=== PATIENT | male | born 1935 | race Caucasian/White ===

== ENCOUNTER 2018-03-19 12:32 | Observation (INO) ==
[2018-03-19] MEDS ORDERED: Sodium Chlor 0.9% Inj 500 ML IV.SIG ONE (13:27)
[2018-03-19 13:41] LABS: Baso % (Auto) 0.5 % (0.0-2.0); Eos % (Auto) 0.2 % (0.0-4.0); Hematocrit 39.9 % (39.0-51.0); Hemoglobin 13.3 gm/dL (13.0-17.0); Lymph # (Auto) 0.9 th/mm3 (1.0-4.8); Lymph % (Auto) 14.1 % (9.0-44.0); Mean Corpuscular HGB Conc 33.4 % (32.0-36.0); Mean Corpuscular Hemoglobin 30.2 pg (27.0-34.0); Mean Corpuscular Volume 90.4 fL (80.0-100.0); Mean Platelet Volume 8.2 fL (7.0-11.0); Mono # (Auto) 0.4 th/mm3 (0.0-0.9); Mono % (Auto) 6.5 % (0.0-8.0); Neut # (Auto) 5.3 th/mm3 (1.8-7.7); Neut % (Auto) 78.7 % (16.0-70.0); Platelet Count 168 th/mm3 (150-450); Red Blood Count 4.41 mil/mm3 (4.50-5.90); Red Cell Distribution Width 13.3 % (11.6-17.2); White Blood Count 6.6 th/mm3 (4.0-11.0)
[2018-03-19 14:00] LABS: Potassium 3.9 meq/L (3.5-5.1)
[2018-03-19 14:02] LABS: Calcium 8.1 mg/dL (8.5-10.1)
[2018-03-19 14:03] LABS: Carbon Dioxide 24.3 meq/L (21.0-32.0)
[2018-03-19 14:04] LABS: INR 1.1 Ratio; Prothrombin Time 10.7 sec (9.8-11.6)
[2018-03-19 14:11] LABS: Troponin I 0.03 ng/mL (0.02-0.05)
[2018-03-19 14:33] LABS: Bilirubin,Urine Negative (Negative); Clarity,Urine Clear (Clear); Color,Urine Yellow (Yellw/Straw); Glucose,Urine (UA) Negative (Negative); Leukocyte Esterase,Urine Negative (Negative); Nitrite,Urine Negative (Negative); Specific Gravity,Urine Less/Equal 1.005 (1.002-1.035); Urobilinogen,Urine 0.2 mg/dL (Less than 2)
[2018-03-19 14:40] LABS: Collection Time,Urine 1415 hours; RBC,Urine 0-3 /hpf (0-3); Squamous Epithelial Cell,Urine 0-5 /hpf (0-5)
--- NOTE | 2018-03-19 15:19 | ED ---
HPI General Chief complaint: Dizziness Stated complaint: Lightheaded/SOB x 0300 hrs Time Seen by Provider: 03/19/18 13:01 Source: patient, family and RN notes reviewed Mode of arrival: ambulatory History of Present Illness HPI narrative: 82yM presenting with near-syncope and chest discomfort. The patient states that for the past several years he's been having episodes of feeling "like I'm going to pass out" which occur both on exertion and at rest, last for several minutes and resolve spontaneously. This morning, he was at home when he had the same sensation and says that he also had mild substernal chest "discomfort" (non-radiating, not made worse by anything, resolving on its own). Denies diaphoresis or dyspnea, denies nausea. He says that he had similar symptoms earlier this year when he had a GI bleed and was hospitalized in [place]; he required a blood transfusion at that time. Family history non-contributory. Patient had an echo performed on 03/06/18 for lower extremity edema which showed EF 60%, mild TR/ LVH, PA pressure 36 mmHg. Related Data Home Medications Medication Instructions Recorded Confirmed atorvastatin 40 mg PO DAILY 03/19/18 03/19/18 memantine 5 mg PO DAILY 03/19/18 03/19/18 metoprolol succinate 25 mg PO DAILY 03/19/18 03/19/18 multivit with min #[id number] 2 tab PO DAILY 03/19/18 03/19/18 omeprazole 20 mg PO DAILY 03/19/18 03/19/18 tamsulosin 2 tab PO DAILY 03/19/18 03/19/18 Allergies Allergy/AdvReac Type Severity Reaction Status Date / Time No Known Allergies Allergy Unverified 03/19/18 12:40 Review of Systems Except as stated in HPI: all other systems reviewed are negative Constitutional Denies fever(s) Eyes Denies blurry vision ENT Denies nasal congestion Cardiovascular Denies dyspnea Respiratory Denies cough Gastrointestinal Denies nausea Genitourinary Denies dysuria Musculoskeletal Denies back pain Neurologic Denies confusion Psychiatric Denies confusion PMFSH History History Provided By: Patient Medical History Medical History Afib (Acute) GERD (gastroesophageal reflux disease) (Acute) High cholesterol (Acute) Hypertension (Acute) Surgical History Surgical History No history of previous surgery (Acute) Social History Social History Substance History: No History of Abuse Second Hand Smoke Exposure: No Smoking Status: Former smoker How Often Do You Have a Drink Containing Alcohol: 2 to 3 times a week Recent Travel in [facility] within the Last 8 Weeks: No Recent Out of Country Travel within the Last 8 Weeks: No Immunization History Tetanus Immunization: Unsure Hx Influenza Vaccine This Season: Yes Exam Const General: healthy appearing and no acute distress HENMT Head: normocephalic and atraumatic Face and sinus: normal facial exam Eyes General: appearance normal, both eyes and all related structures Pupils: PERRL Chest Chest: normal inspection of the chest Resp Effort & Inspection: normal respiratory effort Auscultation: no rhonchi and no wheezes Cardio Rate: regular rate Rhythm: regular rhythm GI Inspection: non-distended Palpation: soft and nontender Skin General: no rashes or lesions noted Neuro General: alert, awake, oriented x3 and no focal motor deficits Extrem Other: 1-2+ pitting edema to lower extremities bilaterally, no calf tenderness Psych Affect: normal affect Course Initial Documented Vital Signs Temperature 97.2 F L 03/19/18 12:35 Pulse Rate 84 03/19/18 12:35 Respiratory Rate 16 03/19/18 12:35 Blood Pressure 88/65 L 03/19/18 12:35 Pulse Oximetry 97 03/19/18 12:35 Last Documented Vital Signs Temperature 97.2 F L 03/19/18 12:35 Pulse Rate 97 H 03/19/18 15:31 Respiratory Rate 18 03/19/18 15:31 Blood Pressure 128/80 03/19/18 15:31 Pulse Oximetry 98 03/19/18 15:31 Medical Decision Making [facility] Narrative Medical decision making narrative: Assessment: 82yM presenting with near-syncope and chest discomfort Plan: EKG and monitor Labs CXR Reassess Addendum: Patient's initial troponin 0.03, EKG shows rate-controlled A fib, labs otherwise unremarkable. He will need cardiac monitoring and further workup for near-syncope/ chest pain. I discussed these results with the patient as well as plan to keep him in the hospital; he understands and agrees. Case discussed with Dr. Osborne of [facility], who requests [facility] as well. Differential Diagnosis Differential Diagnosis: Differential diagnosis includes, but is not limited to: ACS, arrhythmia, anemia, electrolyte abnormality, ICH, dehydration Medical Records Medical records reviewed: Yes I reviewed the patient's medical records. Lab Data Lab results reviewed: Yes I reviewed the patient's lab results. Result diagrams: 03/19/18 13:30 03/19/18 13:30 Lab Results 03/19/18 03/19/18 03/19/18 Range/Units 13:30 13:30 13:30 CBC w Diff Auto diff final WBC 6.6 (4.0-11.0) th/mm3 RBC 4.41 L (4.50-5.90) mil/mm3 Hgb 13.3 (13.0-17.0) gm/dL Hct 39.9 (39.0-51.0) % MCV 90.4 (80.0-100.0) fL MCH 30.2 (27.0-34.0) pg MCHC 33.4 (32.0-36.0) % RDW 13.3 (11.6-17.2) % Plt Count 168 (150-450) th/mm3 MPV 8.2 (7.0-11.0) fL Neut % (Auto) 78.7 H (16.0-70.0) % Lymph % (Auto) 14.1 (9.0-44.0) % [place] % (Auto) 6.5 (0.0-8.0) % Eos % (Auto) 0.2 (0.0-4.0) % Baso % (Auto) 0.5 (0.0-2.0) % Neut # (Auto) 5.3 (1.8-7.7) th/mm3 Lymph # (Auto) 0.9 L (1.0-4.8) th/mm3 [place] # (Auto) 0.4 (0.0-0.9) th/mm3 Eos # (Auto) 0.0 (0.0-0.4) th/mm3 Baso # (Auto) 0.0 (0.0-0.2) th/mm3 WBC Differential . Differential Comment . PT 10.7 (9.8-11.6) sec INR 1.1 Ratio Sodium 139 (136-145) meq/L Potassium 3.9 (3.5-5.1) meq/L Chloride 108 H (98-107) meq/L Carbon Dioxide 24.3 (21.0-32.0) meq/L Anion Gap 7 (5-15) meq/L BUN 15 (7-18) mg/dL Creatinine 1.30 (0.60-1.30) mg/dL Estimated GFR 53 L (>89) mL/min Random Glucose 113 H (74-106) mg/dL Calcium 8.1 L (8.5-10.1) mg/dL Troponin I 0.03 (0.02-0.05) ng/mL Ur Collection Type Urine Color (Yellw/Straw) Urine Clarity (Clear) Urine pH (5.0-8.5) Ur Specific [place] (1.002-1.035) Urine Protein (Neg-Trace) mg/dL Urine Glucose (UA) (Negative) mg/dL Urine Ketones (Negative) mg/dL Urine Occult Blood (Negative) Urine Nitrate (Negative) Urine Bilirubin (Negative) Urine Urobilinogen (Less than 2) mg/dL Ur Leukocyte Esterase (Negative) Urine RBC (0-3) /hpf Ur Squamous Epith Cells (0-5) /hpf Micro UA Comment Urine Culture Comments Urine Collection Time hours 03/19/18 Range/Units 14:15 CBC w Diff WBC (4.0-11.0) th/mm3 RBC (4.50-5.90) mil/mm3 Hgb (13.0-17.0) gm/dL Hct (39.0-51.0) % MCV (80.0-100.0) fL MCH (27.0-34.0) pg MCHC (32.0-36.0) % RDW (11.6-17.2) % Plt Count (150-450) th/mm3 MPV (7.0-11.0) fL Neut % (Auto) (16.0-70.0) % Lymph % (Auto) (9.0-44.0) % [place] % (Auto) (0.0-8.0) % Eos % (Auto) (0.0-4.0) % Baso % (Auto) (0.0-2.0) % Neut # (Auto) (1.8-7.7) th/mm3 Lymph # (Auto) (1.0-4.8) th/mm3 [place] # (Auto) (0.0-0.9) th/mm3 Eos # (Auto) (0.0-0.4) th/mm3 Baso # (Auto) (0.0-0.2) th/mm3 WBC Differential Differential Comment PT (9.8-11.6) sec INR Ratio Sodium (136-145) meq/L Potassium (3.5-5.1) meq/L Chloride (98-107) meq/L Carbon Dioxide (21.0-32.0) meq/L Anion Gap (5-15) meq/L BUN (7-18) mg/dL Creatinine (0.60-1.30) mg/dL Estimated GFR (>89) mL/min Random Glucose (74-106) mg/dL Calcium (8.5-10.1) mg/dL Troponin I (0.02-0.05) ng/mL Ur Collection Type Clean catch Urine Color Yellow (Yellw/Straw) Urine Clarity Clear (Clear) Urine pH 7.0 (5.0-8.5) Ur Specific [place] Less/equal 1.005 (1.002-1.035) Urine Protein Negative (Neg-Trace) mg/dL Urine Glucose (UA) Negative (Negative) mg/dL Urine Ketones Negative (Negative) mg/dL Urine Occult Blood Negative (Negative) Urine Nitrate Negative (Negative) Urine Bilirubin Negative (Negative) Urine Urobilinogen 0.2 (Less than 2) mg/dL Ur Leukocyte Esterase Negative (Negative) Urine RBC 0-3 (0-3) /hpf Ur Squamous Epith Cells 0-5 (0-5) /hpf Micro UA Comment Culture not ind Urine Culture Comments Culture not ind Urine Collection Time 1415 hours ECG Data Interpretation: Rate: 84 BPM Rhythm: Atrial fibrillation Freedom: Normal Intervals: Normal intervals, no blocks, QTc 382 ms Q waves: III T waves: Upright, no inversions ST segments: No elevations or depressions Impression: Rate-controlled atrial fibrillation, no previous EKG available for comparison. Discharge Plan Physicians Team ED Provider: Magdalene Seth Primary Care Provider: NON STAFF,PROVIDER Rxs /Orders / Referrals /Forms Prescriptions: No Action tamsulosin 0.4 mg Capsule,Extended Release 24hr 2 tab PO DAILY RF: 0 omeprazole 20 mg Capsule,Delayed Release(Dr/Ec) 20 mg PO DAILY RF: 0 metoprolol succinate 25 mg Tablet Extended Release 24 Hr 25 mg PO DAILY RF: 0 memantine 5 mg Tablet 5 mg PO DAILY RF: 0 atorvastatin 40 mg PO DAILY RF: 0 multivit with min #[id number] 2 tab PO DAILY RF: 0 Discharge Interventions Interventions: Vital Signs Last Done: 03/19/18 15:31 Status ED Status: With Doctor
[2018-03-19] MEDS ORDERED: Metoprolol Inj 5 MG/5 ML Vial IV.PUSH ONE (15:21)
--- NOTE | 2018-03-19 15:50 | XR ---
EXAM DATE: 03/19/2018 3:43 PM EDT AGE/SEX: 82 years / Male INDICATIONS: Lightheaded with substernal chest discomfort. CLINICAL DATA: This is the patient's initial encounter. Patient reports that signs and symptoms have been present for 1 day and indicates a pain score of 2/10. MEDICAL/SURGICAL HISTORY: Hypertension. None. COMPARISON: No prior exams available for comparison. FINDINGS: A single AP view of the chest demonstrates the lungs to be symmetrically aerated without evidence of mass, infiltrate or effusion. The cardiomediastinal contours are unremarkable. Osseous structures a re intact. CONCLUSION: No acute cardiopulmonary disease. Electronically signed by: Rafal Lezama MD 03/19/2018 3:49 PM EDT
--- NOTE | 2018-03-19 16:08 | CT ---
EXAM DATE: 03/19/2018 4:02 PM EDT AGE/SEX: 82 years / Male INDICATIONS: Dizziness. CLINICAL DATA: This is the patient's initial encounter. Patient reports that signs and symptoms have been present for 1 day and indicates a pain score of 0/10. MEDICAL/SURGICAL HISTORY: Gastroesophageal reflux disease. Hypertension. Hypercholesterolemia. A trial fibrillation. None. RADIATION DOSE: 57.56 CTDI (mGy) COMPARISON: . TECHNIQUE: CT of the head without contrast. Using automated exposure control and adjustment of the mA and/or kV according to patient size, radiation dose was kept as low as reasonably achievable to ob tain optimal diagnostic quality images. DICOM format image data is available electronically for revi ew and comparison. FINDINGS: Cerebrum: Mild stable cerebral atrophy is noted. No evidence of midline shift, mass lesion, hemorrha ge or acute infarction. No extraaxial fluid collections are seen. Posterior Fossa: The cerebellum and brainstem are intact. The 4th ventricle is midline. The cerebe llopontine angle is unremarkable. Extracranial: The visualized portion of the orbits is intact. There is chronic sinusitis involving t he left maxillary sinus with complete opacification and wall thickening are noted. Skull: The calvaria is intact. No evidence of skull fracture. CONCLUSION: 1. No acute infarct, acute hemorrhage, midline shift or extra-axial fluid collections. 2. Mild stable cerebral atrophy. 3. Chronic left maxillary sinusitis. . Electronically signed by: Fermin Swenson MD 03/19/2018 4:07 PM EDT
[2018-03-19] MEDS ORDERED: Bisacodyl 10 MG Supp RECTAL PRN (17:54)
[2018-03-19] MEDS ORDERED: Temazepam 15 MG Capsule PO PRN ×2 (17:54→17:57)
--- NOTE | 2018-03-19 17:54 | P.HP ---
History of Present Illness Primary Care Physician: PROVIDER NON STAFF History of Present Illness: This is an 82-year-old male with a history of atrial fibrillation and hypertension who presents following an episode of dizziness and weakness that occurred at 6 AM this morning. At 6 AM this morning he awoke to go feed his cats and had an acute onset of dizziness and felt that his legs were generally weak. He had to crawl back to his bed but was unable to fall back onto the bed. When his awoke she helped him into bed and he slept for 2 more hours. When he awoke after that he still felt dizzy and weak and decided to come into the ER. He denies any chest pain, denies any nausea or vomiting, denies any focal weakness. ER workup revealed atrial fibrillation with RVR. He knew that he had atrial fibrillation but has never seen a printed circuit boards inspector for this. His primary care doctor was in the middle of some laboratory work to test the atrial fibrillation, presumably thyroid panel. Review of Systems Constitutional: Reports fatigue, Reports weakness, Denies daytime sleepiness, Denies excessive sweating, Denies fever(s), Denies headache(s), Denies weight gain, Denies weight loss Eyes: Denies blind spots, Denies blurry vision, Denies bulging eyes, Denies change in vision, Denies double vision, Denies discharge, Denies dry eyes, Denies floaters, Denies irritation, Denies itchy eyes, Denies loss of vision, Denies pain, Denies requires corrective lenses, Denies sensitivity to light, Denies other Ears, Nose, Mouth, and Throat: Denies abnormal hearing, Denies bleeding gums, Denies bad breath, Denies change in voice, Denies dental pain, Denies difficulty swallowing, Denies dizziness, Denies dry mouth, Denies ear discharge , Denies ear pain, Denies facial pain, Denies headache(s), Denies hearing loss, Denies hoarseness, Denies lip swelling, Denies nosebleed, Denies mouth lesions, Denies mouth pain, Denies nasal congestion, Denies nasal discharge, Denies nasal obstruction, Denies nasal trauma, Denies neck lump, Denies neck pain, Denies nose pain, Denies pain with swallowing, Denies poor balance, Denies post nasal drip, Denies ringing in the ears, Denies sinus pain, Denies sinus pressure , Denies sore throat, Denies throat swelling, Denies tongue swelling, Denies other Cardiovascular: Reports fast heart rate, Reports foot swelling, Reports irregular heart rhythm, Reports lightheadedness, Denies chest pain, Denies chest pain at rest, Denies chest pain with activity, Denies fainting, Denies leg pain with activity, Denies shortness of breath, Denies shortness of breath with activity, Denies shortness of breath when lying down, Denies slow heart rate Respiratory: Denies change in phlegm color, Denies chest congestion, Denies cough, Denies coughing up blood, Denies excessive phlegm production, Denies pain on inspiration, Denies pain with cough, Denies shortness of breath, Denies shortness of breath with activity, Denies snoring, Denies stridor, Denies wheezing, Denies other Gastrointestinal: Denies abdominal pain, Denies belching, Denies black, tarry stools, Denies bloating, Denies bright, red blood in stools, Denies change in bowel habits, Denies constant urge to pass stool, Denies change in stools, Denies coffee ground vomit, Denies constipation, Denies cramping, Denies difficulty swallowing, Denies excessive passing of gas, Denies feeling full early, Denies heartburn, Denies incontinent of stools, Denies loose stools, Denies nausea, Denies pain with swallowing, Denies vomiting, Denies vomiting blood, Denies other Musculoskeletal: Denies abnormal walking, Denies back pain, Denies body aches, Denies decreased muscle mass, Denies deformity, Denies joint pain, Denies joint swelling, Denies limited joint movement, Denies loss of height, Denies muscle cramps, Denies muscle weakness, Denies neck pain, Denies numbness, Denies radiating pain into limb, Denies stiffness, Denies tingling, Denies other Neurologic: Denies abnormal hearing, Denies abnormal movements, Denies abnormal speech, Denies abnormal walking, Denies behavioral changes, Denies burning sensations, Denies confusion, Denies dizziness, Denies fainting, Denies frequent falls, Denies headache(s), Denies lack of coordination, Denies localized weakness, Denies loss of vision, Denies memory loss, Denies numbness, Denies other visual disturbances, Denies radiating pain, Denies restless legs, Denies convulsions, Denies seizure-like activity, Denies sensory deficit, Denies tingling, Denies tingling/numbness/burning sensations, Denies tremor(s), Denies unsteadiness, Denies weakness, Denies other Psychiatric: Denies abnormal sleep pattern, Denies anxiety, Denies behavioral changes, Denies change in appetite, Denies change in sex drive, Denies confusion , Denies depression, Denies difficulty concentrating, Denies hearing things others do not hear, Denies hopelessness, Denies irritability, Denies lack of enjoyment, Denies memory loss, Denies mood swings, Denies panic attacks, Denies paranoia, Denies seeing things others do not see, Denies sensing things others do not sense, Denies tactile hallucinations, Denies thoughts of hurting/killing others, Denies thoughts of hurting/killing yourself, Denies other Endocrine: Denies cold intolerance, Denies excessive sweating, Denies flushing, Denies heat intolerance, Denies increased hunger, Denies increased thirst, Denies increased urination, Denies rapid, pounding, or irregular heartbeat, Denies other PMFSH - History History Provided By: Patient - Medical History Medical History: Medical History (Last Reviewed 03/19/18 @ 15:26 by Magdalene Seth DO) Afib GERD (gastroesophageal reflux disease) High cholesterol Hypertension - Surgical History Surgical History: Surgical History (Last Reviewed 03/19/18 @ 15:26 by Magdalene Seth DO) No history of previous surgery - Tobacco History Second Hand Smoke Exposure: No Tobacco Use In Past 30 Days: No Smoking Status: Former smoker - Alcohol History How Often Do You Have a Drink Containing Alcohol: 2 to 3 times a week - Substance Use History Substance History: No History of Abuse - Travel History Recent Travel in the [place] Within the Last 8 Weeks: No Recent Travel Out of the Country Within the Last 8 Weeks: No - Immunization History Tetanus Immunization: Unsure Hx Influenza Vaccine This Season: Yes Medications and Allergies Active Medications: Active Medications Sodium Chloride (Ns Flush) 2 ml IV.FLUSH PRN PRN PRN Reason: FLUSH AFTER USING IV ACCESS Last Admin: 03/19/18 13:43 Dose: 2 ml Allergies Allergy/AdvReac Type Severity Reaction Status Date / Time No Known Allergies Allergy Unverified 03/19/18 12:40 Home Medications Medication Instructions Recorded Confirmed Type atorvastatin 40 mg PO DAILY 03/19/18 03/19/18 History memantine 5 mg PO DAILY 03/19/18 03/19/18 History metoprolol succinate 25 mg PO DAILY 03/19/18 03/19/18 History multivit with min #[id number] 2 tab PO DAILY 03/19/18 03/19/18 History omeprazole 20 mg PO DAILY 03/19/18 03/19/18 History tamsulosin 2 tab PO DAILY 03/19/18 03/19/18 History Exam Vital signs: Vital Signs 03/19/18 12:35 03/19/18 12:56 03/19/18 13:50 Temperature 97.2 F L Pulse Rate 84 127 H 122 H Respiratory Rate 16 18 18 Blood Pressure 88/65 L 100/65 131/79 Pulse Oximetry 97 96 03/19/18 15:31 Temperature Pulse Rate 97 H Respiratory Rate 18 Blood Pressure 128/80 Pulse Oximetry 98 Intake & Output 03/18/18 03/19/18 03/19/18 18:59 06:59 18:59 Intake Total 500 / 500 Output Total 550 / 550 Balance -50 / -50 Weight 94 kg Intake: IV 500 / 500 NS Inj 500 ML @ Wide Open IV. 500 / 500 SIG BOLUS ONE Rx#:[id number] Output: Urine 550 / 550 Narrative: GENERAL: Alert and oriented 3, well-nourished, no acute distress SKIN: Warm and dry. HEAD: Atraumatic. Normocephalic. EYES: Pupils equal and round. No scleral icterus. No injection or drainage. ENT: No nasal bleeding or discharge. Mucous membranes pink and moist. NECK: Trachea midline. No JVD. CARDIOVASCULAR: Irregularly irregular, 1/6 systolic ejection murmur RESPIRATORY: No accessory muscle use. Clear to auscultation. Breath sounds equal bilaterally. GASTROINTESTINAL: Abdomen soft, non-tender, nondistended. Hepatic and splenic margins not palpable. MUSCULOSKELETAL: Extremities without clubbing, cyanosis. No obvious deformities. Trace edema in feet NEUROLOGICAL: Awake and alert. No obvious cranial nerve deficits. Motor grossly within normal limits. Five out of 5 muscle strength in the arms and legs. Normal speech. PSYCHIATRIC: Appropriate mood and affect; insight and judgment normal. Results - Labs CBC & Chem 7: 03/19/18 13:30 03/19/18 13:30 Labs: Laboratory Results - last 24 hr 03/19/18 03/19/18 03/19/18 13:30 13:30 13:30 CBC w Diff Auto diff final WBC 6.6 RBC 4.41 L Hgb 13.3 Hct 39.9 MCV 90.4 MCH 30.2 MCHC 33.4 RDW 13.3 Plt Count 168 MPV 8.2 Neut % (Auto) 78.7 H Lymph % (Auto) 14.1 Gonzales % (Auto) 6.5 Eos % (Auto) 0.2 Baso % (Auto) 0.5 Neut # (Auto) 5.3 Lymph # (Auto) 0.9 L Gonzales # (Auto) 0.4 Eos # (Auto) 0.0 Baso # (Auto) 0.0 WBC Differential . Differential Comment . PT 10.7 INR 1.1 Sodium 139 Potassium 3.9 Chloride 108 H Carbon Dioxide 24.3 Anion Gap 7 BUN 15 Creatinine 1.30 Estimated GFR 53 L Random Glucose 113 H Calcium 8.1 L Troponin I 0.03 Ur Collection Type Urine Color Urine Clarity Urine pH Ur Specific [place] Urine Protein Urine Glucose (UA) Urine Ketones Urine Occult Blood Urine Nitrate Urine Bilirubin Urine Urobilinogen Ur Leukocyte Esterase Urine RBC Ur Squamous Epith Cells Micro UA Comment Urine Culture Comments Urine Collection Time Blood Type Blood Type Recheck Antibody Screen 03/19/18 03/19/18 03/19/18 13:30 14:15 15:25 CBC w Diff WBC RBC Hgb Hct MCV MCH MCHC RDW Plt Count MPV Neut % (Auto) Lymph % (Auto) Gonzales % (Auto) Eos % (Auto) Baso % (Auto) Neut # (Auto) Lymph # (Auto) [place] # (Auto) Eos # (Auto) Baso # (Auto) WBC Differential Differential Comment PT INR Sodium Potassium Chloride Carbon Dioxide Anion Gap BUN Creatinine Estimated GFR Random Glucose Calcium Troponin I 0.04 Ur Collection Type Clean catch Urine Color Yellow Urine Clarity Clear Urine pH 7.0 Ur Specific [place] Less/equal 1.005 Urine Protein Negative Urine Glucose (UA) Negative Urine Ketones Negative Urine Occult Blood Negative Urine Nitrate Negative Urine Bilirubin Negative Urine Urobilinogen 0.2 Ur Leukocyte Esterase Negative Urine RBC 0-3 Ur Squamous Epith Cells 0-5 Micro UA Comment Culture not ind Urine Culture Comments Culture not ind Urine Collection Time 1415 Blood Type AB Positive Blood Type Recheck Required Antibody Screen Negative - Imaging Impressions Chest X-Ray 03/19/18 15:28 CONCLUSION: No acute cardiopulmonary disease. Head CT 03/19/18 15:35 CONCLUSION: 1. No acute infarct, acute hemorrhage, midline shift or extra-axial fluid collections. 2. Mild stable cerebral atrophy. 3. Chronic left maxillary sinusitis. . Caprini VTE Risk Assessment Caprini VTE Risk Assessment: Moderate/High Risk (score >= 2) Caprini Risk Assessment Model: Point Value = 1 Point Value = 2 Point Value = 3 Point Value = 5 Age 41-60 Minor surgery BMI > 25 kg/m2 Swollen legs Varicose veins or History of unexplained or recurrent spontaneous Oral contraceptives or hormone replacement Sepsis (< 1 month) Serious lung disease, including pneumonia (< 1 month) Abnormal pulmonary function Acute myocardial infarction Congestive heart failure (< 1 month) History of inflammatory bowel disease Medical patient at bed rest Age 61-74 Arthroscopic surgery Major open surgery (> 45 min) Laparoscopic surgery (> 45 min) Malignancy Confined to bed (> 72 hours) Immobilizing plaster cast Central venous access Age >= 75 History of VTE Family history of VTE Factor V Leiden Prothrombin [id number] Lupus anticoagulant Anticardiolipin antibodies Elevated serum homocysteine Heparin-induced thrombocytopenia Other congenital or acquired thrombophilia Stroke (< 1 month) Elective arthroplasty Hip, pelvis, or leg fracture Acute spinal cord injury (< 1 month) Prophylaxis Regimen: Total Risk Factor Score Risk Level Prophylaxis Regimen 0-1 Low Early ambulation 2 Moderate Order ONE of the following: *Sequential Compression Device (SCD) *Heparin 5000 units SQ BID 3-4 Higher Order ONE of the following medications: *Heparin 5000 units SQ TID *Enoxaparin/Lovenox 40 mg SQ daily (WT < 150 kg, CrCl > 30 mL/min) *Enoxaparin/Lovenox 30 mg SQ daily (WT < 150 kg, CrCl > 10-29 mL/min) *Enoxaparin/Lovenox 30 mg SQ BID (WT < 150 kg, CrCl > 30 mL/min) AND/OR *Sequential Compression Device (SCD) 5 or more Highest Order ONE of the following medications: *Heparin 5000 units SQ TID (Preferred with Epidurals) *Enoxaparin/Lovenox 40 mg SQ daily (WT < 150 kg, CrCl > 30 mL/min) *Enoxaparin/Lovenox 30 mg SQ daily (WT < 150 kg, CrCl > 10-29 mL/min) *Enoxaparin/Lovenox 30 mg SQ BID (WT < 150 kg, CrCl > 30 mL/min) AND *Sequential Compression Device (SCD) Assessment and Plan - Plan Atrial fibrillation with RVR Essentially a new onset, he has had paroxysmal episodes, none by his primary care but not yet referred to cardiology Combined with generalized weakness and recurrent ankle edema this is concerning for ischemic causes versus heart failure Follow on telemetry overnight, continue treatment with metoprolol to reduce rate from 120s down to normal sinus rhythm if possible Consult cardiology Lightheadedness w/ generalized weakness Most likely related to A. 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
[2018-03-19] MEDS ORDERED: Acetaminophen 325 MG Tablet PO PRN (17:57)
[2018-03-19 18:59] LABS: Troponin I 0.05 ng/mL (0.02-0.05)
[2018-03-19] MEDS ORDERED: Enoxaparin Inj 40 MG/0.4 ML Syringe SQ SCH (20:00)
[2018-03-19] MEDS: Senna/Docusate Sodium 8.6/50 MG Tablet PO SCH (22:24)
[2018-03-20 00:27] LABS: Troponin I 0.05 ng/mL (0.02-0.05)
[2018-03-20 06:01] LABS: Hematocrit 37.4 % (39.0-51.0); Hemoglobin 12.1 gm/dL (13.0-17.0); Mean Corpuscular HGB Conc 32.3 % (32.0-36.0); Mean Corpuscular Hemoglobin 29.5 pg (27.0-34.0); Mean Corpuscular Volume 91.2 fL (80.0-100.0); Mean Platelet Volume 8.2 fL (7.0-11.0); Platelet Count 150 th/mm3 (150-450); Red Cell Distribution Width 13.8 % (11.6-17.2); White Blood Count 5.8 th/mm3 (4.0-11.0)
[2018-03-20 06:18] LABS: Potassium 3.7 meq/L (3.5-5.1)
[2018-03-20 06:22] LABS: Calcium 7.8 mg/dL (8.5-10.1); Carbon Dioxide 25.3 meq/L (21.0-32.0)
[2018-03-20 06:36] LABS: Thyroid Stimulating Hormone 0.495 uIU/mL (0.358-3.740)
--- NOTE | 2018-03-20 07:34 | MB ---
cc: Tutu Valadez MD, Dylon,Blair COLON DATE: 03/20/2018 HISTORY OF PRESENT ILLNESS: I reviewed hospital records and spoke with the patient. He is a pleasant 82-year-old white man I am seeing for atrial fibrillation with rapid response. The patient apparently has a history of atrial fibrillation for about a year. This is being worked up through his primary care provider. He notes no cardiac symptomatology except for trace pedal edema. The patient awoke at 3:00 a. m. on 03/19. He had gotten out of bed to go to the bathroom and maybe feed his cat and felt weak and mildly lightheaded. He got back into bed and this eventually resolved. He has been asymptomatic since he has been here. DIAGNOSTIC STUDIES: His EKG showed atrial fibrillation with rapid response, but he has converted to sinus rhythm. There have been minimal nonspecific T-wave changes. There has been a lot of artifact on the monitor, but it does appear he has been in sinus rhythm now. Chest x-ray showed no active disease. CT of the head showed mild cerebral atrophy and maxillary sinusitis. LABORATORY STUDIES: He is mildly anemic with hematocrit 37.4. Potassium 3.7, creatinine 1.3. Troponin 0.05 x 2. TSH normal. Urinalysis negative. MEDICATIONS PRIOR TO ADMISSION: Supposedly included: 1. Tamsulosin. 2. Atorvastatin. 3. Omeprazole. 4. Metoprolol. 5. Memantine. PRESENT MEDICATIONS: List reviewed. PAST MEDICAL HISTORY: 1. Hypertension. 2. Hyperlipidemia. 3. Gastroesophageal reflux disease. 4. GI bleed 01/12 in [place]. He had been on aspirin, but he does not know the results and has had no further bleeding. 5. Benign prostatic hypertrophy. ALLERGIES: NONE. SOCIAL HISTORY: He is and a distant smoker and rarely drinks. FAMILY HISTORY: Noncontributory. REVIEW OF SYSTEMS: Remarkable for slow urination and wearing hearing aids. PHYSICAL EXAMINATION: GENERAL: He is alert and oriented x 3. VITAL SIGNS: Afebrile. Vital signs are stable. HEENT: There are no xanthelasma and oropharyngeal mucosa normal. CHEST: Clear. NECK: JVD normal. HEART: S1, S2. No murmurs or gallops. ABDOMEN: Benign. EXTREMITIES: Show no cyanosis or clubbing, and there is at most trace edema. Pulses 2/2 throughout without bruits with 1-2+ femoral and pedal pulses. He has not ambulated. PROBLEMS: 1. Atrial fibrillation with rapid response - this most likely was responsible for his lightheadedness. 2. Hypertension. 3. Hyperlipidemia. 4. Recent gastrointestinal bleed. RECOMMENDATIONS: 1. Home medications really have not been ordered. We could hold his metoprolol and I will start him on sustained release diltiazem. 2. Hold anticoagulation, as his GI bleed does need workup by his primary care provider. 3. Low cholesterol/salt diet. 4. Echocardiogram to assess ventricular and valvular function. 5. Further recommendations will follow. MD GIANLUCA Lim/MIGUEL , 07:05 AM , 07:33 AM
[2018-03-20] MEDS ORDERED: dilTIAZem CD 120 MG Capsule PO SCH (09:00)
[2018-03-20] MEDS: Senna/Docusate Sodium 8.6/50 MG Tablet PO SCH (09:41)
--- NOTE | 2018-03-20 10:02 | ECG ---
Date Performed: 03/20/2018 Time Performed: 00:26:18 PTAGE: 82 years EKG: Sinus rhythm NONSPECIFIC T-WAVE ABNORMALITY BORDERLINE ECG PREVIOUS TRACING : 03/19/2018 18.28 DOCTOR: Giorgi Myers Interpretating Date/Time 03/20/2018 10:01:53
--- NOTE | 2018-03-20 10:54 | ECG ---
Date Performed: 03/19/2018 Time Performed: 18:28:08 PTAGE: 82 years EKG: ATRIAL FIBRILLATION NONSPECIFIC ST & T-WAVE ABNORMALITY ABNORMAL RHYTHM ECG PREVIOUS TRACING : 03/19/2018 15.33 DOCTOR: Giorgi Myers Interpretating Date/Time 03/20/2018 10:52:32
--- NOTE | 2018-03-20 11:01 | ECG ---
Date Performed: 03/19/2018 Time Performed: 15:33:59 PTAGE: 82 years EKG: ATRIAL FIBRILLATION NONSPECIFIC T-WAVE ABNORMALITY ABNORMAL RHYTHM ECG NO PREVIOUS TRACING DOCTOR: Giorgi Myers Interpretating Date/Time 03/20/2018 11:00:52
--- NOTE | 2018-03-20 17:24 | P.DS ---
Date of admission: 03/19/18 15:36 Primary care physician: PROVIDER NON STAFF Brief History from admission: This is an 82-year-old male with a history of atrial fibrillation and hypertension who presents following an episode of dizziness and weakness that occurred at 6 AM this morning. At 6 AM this morning he awoke to go feed his cats and had an acute onset of dizziness and felt that his legs were generally weak. He had to crawl back to his bed but was unable to fall back onto the bed. When his awoke she helped him into bed and he slept for 2 more hours. When he awoke after that he still felt dizzy and weak and decided to come into the ER. He denies any chest pain, denies any nausea or vomiting, denies any focal weakness. ER workup revealed atrial fibrillation with RVR. He knew that he had atrial fibrillation but has never seen a cds sales advisor for this. His primary care doctor was in the middle of some laboratory work to test the atrial fibrillation, presumably thyroid panel. DS: Medications - Discharge Medications Prescriptions: diltiazem HCl 120 mg PO DAILY 30 Days #30 cap DS: Summary Hospital Course: 82-year-old male admitted for generalized weakness that was seemingly secondary to atrial fibrillation with RVR. His treatment plan was reviewed by cardiology who changed him from metoprolol to diltiazem 120 mg extended release form. Overnight a combination of IV metoprolol and the new diltiazem p.o. brought his rhythm from irregular into normal sinus rhythm. He has remained in normal sinus rhythm all day. An echocardiogram performed 2 weeks ago was faxed over from [facility] and shows ejection fraction of 60% with mild left ventricular hypertrophy. These new pieces of information were shared with Dr. Valadez on a phone call. He recommended continuation of the diltiazem reported that no heart catheterization was indicated at this time. Patient is recommended to follow-up with his primary care provider within 1 week to follow- up with Dr. Valadez in 3-4 weeks. He is to resume a low-salt diet. - Time Spent with Patient Total time spent providing and/or coordinating discharge services: - Quality: VTE Deep Vein Thrombosis/Pulmonary Embolism Present on Admission: No Exam Vital signs: Vital Signs 03/19/18 20:00 03/20/18 00:00 03/20/18 04:18 Temperature 96.6 F L 98 F 97.4 F L Pulse Rate 73 71 71 Respiratory Rate 18 18 18 Blood Pressure 104/57 L 124/70 123/70 Pulse Oximetry 96 95 97 03/20/18 08:00 03/20/18 09:00 03/20/18 12:00 Temperature 96.7 F L 96.8 F L Pulse Rate 62 62 65 Respiratory Rate 17 17 Blood Pressure 131/74 155/81 H Pulse Oximetry 95 96 Intake & Output 03/19/18 03/20/18 03/20/18 18:59 06:59 18:59 Intake Total 500 / 500 365 / 365 Output Total 550 / 550 Balance -50 / -50 365 / 365 Weight 88.451 kg 89.6 kg Intake: IV 500 / 500 NS Inj 500 ML @ Wide Open IV. 500 / 500 SIG BOLUS ONE Rx#:[id number] Oral Output: Urine 550 / 550 Other: # Voids 3 Date of Last Bowel Movement 03/18/18 03/18/18 03/18/18 Weight On Admission 88.451 kg Results Procedures completed during hospitalization: none Labs on day of discharge: Labs from last 24 hours 03/20/18 03/20/18 03/20/18 05:33 05:33 00:00 WBC 5.8 RBC 4.10 L Hgb 12.1 L Hct 37.4 L MCV 91.2 MCH 29.5 MCHC 32.3 RDW 13.8 Plt Count 150 MPV 8.2 Sodium 142 Potassium 3.7 Chloride 111 H Carbon Dioxide 25.3 Anion Gap 6 BUN 18 Creatinine 1.30 Estimated GFR 53 L Random Glucose 110 H Calcium 7.8 L Total Creatine Kinase 65 Troponin I 0.05 TSH 0.495 03/19/18 18:25 WBC RBC Hgb Hct MCV MCH MCHC RDW Plt Count MPV Sodium Potassium Chloride Carbon Dioxide Anion Gap BUN Creatinine Estimated GFR Random Glucose Calcium Total Creatine Kinase 94 Troponin I 0.05 TSH - Impressions ITS Impressions Chest X-Ray 03/19/18 15:28 CONCLUSION: No acute cardiopulmonary disease. Head CT 03/19/18 15:35 CONCLUSION: 1. No acute infarct, acute hemorrhage, midline shift or extra-axial fluid collections. 2. Mild stable cerebral atrophy. 3. Chronic left maxillary sinusitis. . Discharge Plan - Discharge Disposition Patient Disposition: Discharge Home - Discharge Condition Condition: Good - Discharge Order Discharge Orders: Discharge Order (Routine); Ordered 03/20/18 Ordered By: Blair Osborne - Physicians Team Primary Care Provider: NON STAFF,PROVIDER Attending Provider: Blair Osborne Other Providers: Steven Chambers DO
== END 2018-03-20 18:09 | disposition home or self-care (01) ==
LOC: PHED 12:32 → PH3 12:32 → PHEDA 12:32 → PH3 16:36
PROVIDERS: ADMIT Family Medicine; ATTEND Family Medicine